=== PATIENT | male | born 1950 | race Caucasian/White ===

== ENCOUNTER 2016-09-20 10:33 | Day surgery (SDC) | payer MEDICAID ==
[2016-09-20] MEDS ORDERED: NS 500 ML IV ONE (10:42)
[2016-09-20] MEDS ORDERED: MIDAZOLAM 2 MG/2 ML VIAL IVP ONE (10:42)
[2016-09-20] MEDS ORDERED: PROPOFOL 200 MG/20 ML VIAL IVP ONE (10:42)
[2016-09-20] MEDS ORDERED: fentaNYL 100 MCG/2 ML INJ IVP ONE (10:42)
--- NOTE | 2016-09-20 10:59 | CPEKG ---
Heart Rate: 76 RR Interval: 789 QRSD Interval: 100 QT Interval: 404 QTC Interval: 455 QRS [place]: 117 T Wave [place]: 40 EKG Severity - ABNORMAL ECG - EKG Impression: ATRIAL FIBRILLATION, V-RATE 62-83 EKG Impression: LEFT POSTERIOR FASCICULAR BLOCK EKG Impression: ANTERIOR INFARCT, AGE INDETERMINATE Electronically Signed By: Anna Almaguer 20-Sep-2016 14:35:50
[2016-09-20 11:29] LABS: INR 1.42 (0.83-1.16); PROTIME(PATIENT) 17.3 SEC (12.0-15.0)
[2016-09-20 11:30] LABS: APTT 57.2 SEC (23.0-38.0)
[2016-09-20 11:53] LABS: ANION GAP 15 mEq/L (8-16); CALCIUM 9.8 mg/dL (8.5-10.4); CARBON DIOXIDE 21 mEq/l (22-31); CHLORIDE 106 mEq/L (97-110); CREATININE 1.2 mg/dL (0.7-1.3); GLOMERULAR FILTRATION RATE > 60; GLUCOSE 111 mg/dL (70-100); MAGNESIUM 2.1 mg/dL (1.6-2.3); POTASSIUM 4.7 mEq/L (3.5-5.2); SODIUM 142 mEq/L (134-144)
--- NOTE | 2016-09-20 12:32 | CPEKG ---
Heart Rate: 59 RR Interval: 1017 P-R Interval: 240 QRSD Interval: 90 QT Interval: 424 QTC Interval: 420 P [place]: 21 QRS [place]: 120 T Wave [place]: 71 EKG Severity - ABNORMAL ECG - EKG Impression: SINUS RHYTHM EKG Impression: FIRST DEGREE AV BLOCK EKG Impression: LEFT POSTERIOR FASCICULAR BLOCK EKG Impression: ANTERIOR INFARCT, AGE INDETERMINATE Electronically Signed By: Anna Almaguer 20-Sep-2016 14:35:57
--- NOTE | 2016-09-22 15:05 | EPPROC ---
Electrophysiology Procedure Note: Procedure: CV Indication: Symptomatic AF Procedure: Pt sedated by anesthesia staff. Once sedated, pt underwent DCCV at 200J. Pt successfully converted to SR Conclusion: Successful CV. Patient Problems: Problems Problem Status Diagnosed Accelerated hypertension Acute Atrial fibrillation and flutter Acute
== END 2016-09-20 16:30 | disposition home or self-care (01) ==
LOC: FCATH 10:33
PROVIDERS: ATTEND Internal Medicine Cardiovascular Disease
PROC: 5A2204Z Restoration of Cardiac Rhythm, Single (ICD-10-PCS; principal; 2016-09-20)
DX: I48.0 Paroxysmal atrial fibrillation (principal); I11.9 Hypertensive heart disease without heart failure; G47.33 Obstructive sleep apnea (adult) (pediatric); E66.9 Obesity, unspecified; Z68.35 Body mass index [BMI] 35.0-35.9, adult; Z79.01 Long term (current) use of anticoagulants
CPT/HCPCS: J2704

== ENCOUNTER → 2016-11-29 | Outpatient (CLI) | payer MEDICAID | LOC: FIMAGING 09:45 | PROVIDERS: ATTEND Internal Medicine Cardiovascular Disease | DX: I48.2 Chronic atrial fibrillation (principal); I51.7 Cardiomegaly; Z79.899 Other long term (current) drug therapy ==

== ENCOUNTER 2017-12-03 22:23 | Emergency (ER) | payer MEDICAID, OTHER ==
--- NOTE | 2017-12-03 23:16 | EDPHY ---
H & P Stated Complaint: HEADACHE, PAIN TO SCAPULA AND WORRIED ABOUT BP Time Seen by Provider: 12/03/17 22:35 HPI/ROS: HPI The patient presents with elevated blood pressures at home as high as 220/155 tonight. He awoke this morning at about 7:00 a.m. With a by temporal headache which he describes as a pressure and tight sensation which was quite mild in severity. He took ibuprofen without any improvement. This was associated with mild tinnitus bilaterally. He does not normally get headaches and when he checked his blood pressure was slightly elevated at about 150 systolic. Thus, throughout the day he continue to check his blood pressure and noticed that it was rising throughout the day. Also he did develop a mild chest tightness which she rates as 1/10 which is constant since this morning. In addition, he has a scapular pain on the right scapula which is quite mild which started spontaneously this evening. Because his blood pressure was getting increasingly worse over the course of the day, he was concerned and comes into the emergency department. He reports no recent changes in his blood pressure medication regimen. He has not checked his blood pressure over the last several weeks, however he says he usually is about 125 over 80s.. REVIEW OF SYSTEMS Constitutional: No fever, no chills. Eyes: No discharge. ENT: No sore throat. Cardiovascular: + chest pain, no palpitations. Respiratory: No cough, no shortness of breath. Gastrointestinal: No abdominal pain, no vomiting. Genitourinary: No hematuria. Musculoskeletal: No back pain. Skin: No rashes. Neurological: + headache. PMHx: AFib on Pradaxa HTN metoprolol, valsartan Primary care doctor is Dr. 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 Soc Hx: no EtOH, no drug use PHYSICAL General Appearance: Alert, no distress Eyes: Pupils equal and round no pallor or injection ENT, Mouth: Mucous membranes moist Respiratory: There are no retractions, lungs are clear to auscultation Cardiovascular: Regular rate and rhythm Gastrointestinal: Abdomen is soft and non-tender, no masses, bowel sounds normal Neurological: A&O, moves all extremities Skin: Warm and dry, no rashes Musculoskeletal: Neck is supple non tender Extremities: symmetrical, full range of motion Psychiatric: Patient is oriented X 3, there is no agitation concerned about stroke, or CT friends with MIs, worried cardiac hx of Source: Patient Exam Limitations: No limitations - Personal History Current Tetanus/Diphtheria Vaccine: Yes Current Tetanus Diphtheria and Acellular Pertussis (TDAP): Yes - Medical/Surgical History Hx Asthma: No Hx Chronic Respiratory Disease: No Hx Diabetes: No Hx Cardiac Disease: Yes Hx Renal Disease: No Hx Cirrhosis: No Hx Alcoholism: No Hx HIV/AIDS: No Hx Splenectomy or Spleen Trauma: No Other PMH: HTN, A-FIB - Social History Smoking Status: Former smoker Constitutional: Initial Vital Signs Temperature (C) 36.8 C 12/03/17 22:26 Heart Rate 99 12/03/17 22:26 Respiratory Rate 18 12/03/17 22:26 Blood Pressure 167/114 H 12/03/17 22:26 O2 Sat (%) 93 12/03/17 22:26 O2 Delivery Mode Room Air Allergies/Adverse Reactions: lisinopril Allergy (Intermediate, Verified 12/03/17 22:30) Other-Enter Comments Home Medications: Medication Instructions Recorded Ascorbic Acid [Vitamin C 500 mg 500 mg PO DAILY 05/03/16 (*)] Dabigatran Etexilate Mesyl 150 mg PO BID 05/03/16 [Pradaxa 150 MG (*)] Herbals/Supplements -Info Only 1 ea PO DAILY 05/03/16 Fish Oil 2,000 mg PO DAILY 07/03/16 Metoprolol Tartrate 75 mg PO DAILY 07/03/16 Valsartan 160 mg PO 12/03/17 Medical Decision Making - Diagnostics EKG Interpretation: EKG: Complete interpretation has been separately recorded in the [email or web address] archive. Summary impression: Atrial fibrillation with rate of approximately 90 , no ST segment changes Imaging Results: Imaging Impressions Chest X-Ray 12/03/17 23:16 Impression: Suspect congestive heart failure superimposed upon underlying airways disease. Chest x-ray two view shows cardiomegaly, interpreted by me, radiology interpretation is pending. Imaging: I viewed and interpreted images myself Differential Diagnosis: 67-year-old male with history of hypertension, atrial fibrillation presents from home with elevated blood pressures getting progressively worse over the course of the day in the setting of a mild headache and very mild chest pressure. On exam here, his blood pressure has improved from at home. He has a normal neurologic evaluation. I suspect his headache is tension type, I doubt intracranial hemorrhage given no neurologic deficits or complaints. In regards to his chest pressure, we will evaluate for ACS. I will obtain a single troponin as he has had pain for the entirety of the day. EKG is unremarkable though he is in atrial fibrillation. Labs were checked and were unremarkable. Chest x-ray shows cardiomegaly with signs of CHF. I have discussed this with the patient who thinks that he does have a history of CHF, though he is not on diuretics. He said he used to have lower extremity edema which has improved. Currently, he denies any dyspnea on exertion, he can normally walk half a mi before a become short of breath. He has no lower extremity edema. He is followed by Dr. Gotti of Cardiology and I have explained that I would like for him to follow-up. His BNP is slightly elevated though may be falsely low because of his obesity. He will be discharged home and was instructed to check his blood pressure once a day. If he continues to have elevated readings, he will certainly need changes to his medications. - Data Points Laboratory Results: Laboratory Results 12/03/17 23:30 12/03/17 23:30 12/04/17 12/03/17 12/03/17 00:00 23:30 23:30 WBC 11.41 10^3/uL H 10^3/uL (3.80-9.50) RBC 4.99 10^6/uL 10^6/uL (4.40-6.38) Hgb 15.7 g/dL g/dL (13.7-17.5) Hct 46.1 % % (40.0-51.0) MCV 92.4 fL fL (81.5-99.8) MCH 31.5 pg pg (27.9-34.1) MCHC 34.1 g/dL g/dL (32.4-36.7) RDW 13.2 % % (11.5-15.2) Plt Count 155 10^3/uL 10^3/uL (150-400) MPV 11.3 fL fL (8.7-11.7) Neut % (Auto) 57.4 % % (39.3-74.2) Lymph % (Auto) 22.3 % % (15.0-45.0) [place] % (Auto) 11.7 % % (4.5-13.0) Eos % (Auto) 5.7 % % (0.6-7.6) Baso % (Auto) 1.1 % % (0.3-1.7) Nucleat RBC Rel Count 0.0 % % (0.0-0.2) Absolute Neuts (auto) 6.56 10^3/uL H 10^3/uL (1.70-6.50) Absolute Lymphs (auto) 2.54 10^3/uL 10^3/uL (1.00-3.00) Absolute Monos (auto) 1.33 10^3/uL H 10^3/uL (0.30-0.80) Absolute Eos (auto) 0.65 10^3/uL H 10^3/uL (0.03-0.40) Absolute Basos (auto) 0.13 10^3/uL H 10^3/uL (0.02-0.10) Absolute Nucleated RBC 0.00 10^3/uL 10^3/uL (0-0.01) Immature Gran % 1.8 % H % (0.0-1.1) Immature Gran # 0.20 10^3/uL H 10^3/uL (0.00-0.10) Sodium 142 mEq/L mEq/L (135-145) Potassium 4.5 mEq/L mEq/L (3.5-5.2) Chloride 105 mEq/L mEq/L (97-110) Carbon Dioxide 25 mEq/l mEq/l (22-31) Anion Gap 12 mEq/L mEq/L (8-16) BUN 13 mg/dL mg/dL (7-23) Creatinine 0.9 mg/dL mg/dL (0.7-1.3) Estimated GFR > 60 Glucose 115 mg/dL H mg/dL (70-100) Calcium 10.0 mg/dL mg/dL (8.5-10.4) Troponin I < 0.012 ng/mL ng/mL (0.000-0.034) NT-Pro-B Natriuret Pep 211 pg/mL H pg/mL (0-125) Departure - Departure Disposition: Home, Routine, Self-Care Clinical Impression: Elevated blood pressure reading HTN (hypertension) Qualifiers: Hypertension type: unspecified Qualified Code(s): I10 - Essential (primary) hypertension Headache Qualifiers: Headache type: unspecified Headache chronicity pattern: acute headache Intractability: not intractable Qualified Code(s): R51 - Headache Condition: Good Instructions: Chronic Hypertension (ED), Mediterranean Diet (DC) Additional Instructions: On your chest x-ray today, it appears that you have something called congestive heart failure. 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 I encourage you to call to make an appointment to be seen sometime this week for further care. You may need to have an ultrasound of your heart performed. Referrals: Kaylen Stone MD [Primary Care Provider] - As per Instructions Candido Gotti MD [Medical Doctor] - As per Instructions
--- NOTE | 2017-12-03 23:35 | CPEKG ---
Heart Rate: 94 RR Interval: 638 QRSD Interval: 98 QT Interval: 376 QTC Interval: 471 QRS [place]: 123 T Wave [place]: -31 EKG Severity - ABNORMAL ECG - EKG Impression: ATRIAL FLUTTER, A-RATE 250 EKG Impression: LEFT POSTERIOR FASCICULAR BLOCK EKG Impression: ANTERIOR INFARCT, AGE INDETERMINATE EKG Impression: NONSPECIFIC T ABNORMALITIES, INFERIOR LEADS Electronically Signed By: Maria Fernanda Marx 04-Dec-2017 06:04:09
[2017-12-03 23:43] LABS: PLATELET COUNT 155 10^3/uL (150-400)
[2017-12-04 01:08] VITALS: BP 182/115
== END 2017-12-04 01:07 | disposition home or self-care (01) ==
DX: I10 Essential (primary) hypertension (principal); R51 Headache; Z87.891 Personal history of nicotine dependence

== ENCOUNTER → 2018-06-19 | Outpatient (CLI) | payer OTHER | LOC: BHFA 08:30 | PROVIDERS: ATTEND Internal Medicine Cardiovascular Disease | DX: R06.02 Shortness of breath (principal); I48.91 Unspecified atrial fibrillation; I10 Essential (primary) hypertension | CPT/HCPCS: 78452; 93017; A9500; J2785 ==

== ENCOUNTER → 2018-07-02 | Outpatient (CLI) | payer OTHER | LOC: BHFA 10:45 | PROVIDERS: ATTEND Internal Medicine Cardiovascular Disease | DX: I48.91 Unspecified atrial fibrillation (principal) ==